=== PATIENT | male | born 1975 | race African-American/Black ===

== ENCOUNTER 2018-07-30 17:39 | Emergency (ER) | payer MEDICARE ==
[2018-07-30 17:47] VITALS: BP 103/65
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
== END 2018-07-30 18:15 | disposition home or self-care (01) ==
LOC: ER 17:39
DX: E11.65 Type 2 diabetes mellitus with hyperglycemia (principal); Z79.4 Long term (current) use of insulin; Z87.891 Personal history of nicotine dependence
CPT/HCPCS: 99284